=== PATIENT | female | born 1965 | race Caucasian/White ===

== ENCOUNTER 2017-02-11 16:17 | Emergency (ER) | payer OTHER ==
[~2017-02-11] VITALS: Ht 160 cm; Wt 65.8 kg
[~2017-02-11 16:17] MED LIST: FLEXERIL10 MG PO
--- NOTE | 2017-02-11 17:53 | ED GI/GU/ABDOMINAL COMPLAINT ---
History of Present Illness General Chief Complaint: Female Urogenital Problems Stated Complaint: BLOOD IN URINE FOR 4 DAYS,CRAMPS Source: patient, old records Exam Limitations: no limitations Vital Signs & Intake/Output Vital Signs & Intake/Output Vital Signs Date Time Temp Pulse Resp B/P B/P Pulse O2 O2 Flow FiO2 Mean Ox Delivery Rate 02/11 1923 98.4 77 18 138/84 97 Room Air 02/11 183 Room Air Room Air 02/11 1717 98.5 74 16 147/94 98 Room Air Allergies Coded Allergies: Tetanus Vaccines and Toxoid (PER PT CANT REMEMBER REACTION 02/11/17) tetanus and diphtheria toxoids (UNKNOWN REACTION PER PT 02/11/17) Uncoded Allergies: STONE FRUITS (GI UPSET 02/11/17) Reconcile Medications No Known Home Medications Triage Note: RECEIVED 51 YO FEMALE C/O BLOOD IN URINE, STARTED MONDAY. LOWER ABDOMINAL CRAMPING STARTED YESTERDAY, WORSE TODAY. NO DYSURIA. Triage Nurses Notes Reviewed? yes LMP (ages 10-50): hysterectomy ? N Is pt currently ? No Onset: Abrupt Duration: day(s): (1), week(s): (1), constant, waxing and waning Timing: recent history Quality/Severity: aching, cramping Severity Numbers: 5 Location: left flank, left lower quadrant Radiation: no radiation Activities at Onset: none Prior Abdominal Problems: none No Modifying Factors: none Associated Symptoms: DENIES HPI: 51-year-old female presents to the ER complaining of one-week history of hematuria associated with left flank and suprapubic abdominal pain since today. No history of similar symptoms in the past she has not sought care for her hematuria until today. No fever no chills no nausea no vomiting. She is not taken anything for her symptoms. Her only abdominal surgery significant for a hysterectomy. No chest pain back pain. She denies any vaginal bleeding or discharge. No modifying factors or associated symptoms otherwise no recent trauma fall no low back pain. No dysuria urgency frequency Past History Travel History Traveled to [place] past 21 day No Medical History Any Pertinent Medical History? none Neurological: NONE EENT: NONE Cardiovascular: NONE Respiratory: NONE Gastrointestinal: NONE Hepatic: NONE Renal: NONE Musculoskeletal: NONE Psychiatric: NONE Blood Disorders: NONE Cancer(s): NONE Surgical History Surgical History: none Psychosocial History What is your primary language Zimbabwean Tobacco Use: Never used Family History Hx Contributory? No Review of Systems Review of Systems Constitutional: Reports: see HPI. All Other Systems: Reviewed and Negative Comments Review of systems: See HPI, All other systems negative. Constitutional, no chills no fever, no malaise HEENT: No visual changes no sore throat no congestion, Cardiovascular: No chest pain , no palpitation Skin: no rashes, no change in skin Respiratory: No dyspnea no cough no sputum GI: No nausea no vomiting, no diarrhea, : No dysuria Muscle skeletal: No joint pain, no back pain, no neck pain, Neurologic: No numbness , no headache Psych: No stress Heme/endocrine: No bruising no bleeding Immunology: No lymphadenopathy Physical Exam Physical Exam General Appearance: well developed/nourished, no apparent distress, alert, awake Gastrointestinal: normal bowel sounds, soft, non-tender Comments: Well-developed well-nourished person in no acute distress HEENT: Normal EENT exam; PERRL, EOMI, HEAD is atraumatic. moist mucous membranes. Neck: Supple, no lymphadenopathy, normal range of motion Back: Nontender, no CVA tenderness. Full range of motion Cardiovascular: Regular rate and rhythms no murmurs Respiratory: No respiratory distress. Patient speaking in full complete sentences. Breath sounds clear to auscultation bilaterally: NO W/R/R Abdomen: Soft, nontender nondistended, no appreciable organomegaly. Normal bowel sounds. No rebound/guarding, No appreciable enlargement of the abdominal aorta, No ascites. Extremity: No edema, full range of motion of extremities, Neuro: Alert oriented x3, motor sensory normal, . There were no obvious focal neurologic abnormalities. Skin: No appreciable rash on exposed skin, skin is warm and dry. Psych: Mood and affect is normal, memory and judgment is normal. Core Measures ACS in differential dx? No Severe Sepsis Present: No Septic Shock Present: No Progress Differential Diagnosis: AAA, appendicitis, biliary colic, bowel obstruction, colon cancer, gastritis, hepatitis, hernia, inflamm bowel dis, kidney stone, ovarian cyst, PID/cervicitis, perforated viscous, SBO, UTI/pyelo, MALIGNANCY Plan of Care: Orders Procedure Date/time Status COMPREHENSIVE METABOLIC PANEL 02/11 1817 Complete CBC WITHOUT DIFFERENTIAL 02/11 1817 Complete URINE 02/11 162 Complete URINALYSIS 02/11 162 Complete Laboratory Tests 02/11/171826: Anion Gap 10, Estimated GFR > 60, BUN/Creatinine Ratio 15.7, Glucose 104 H, Calcium 9.3, Total Bilirubin 0.5, AST 25, ALT 37, Alkaline Phosphatase 58, Total Protein 7.4, Albumin 4.6, Globulin 2.8, Albumin/Globulin Ratio 1.6, CBC w Diff NO MAN DIFF REQ, RBC 4.53, MCV 88.3, MCH 29.9, RDW 13.3, MPV 7.4, Gran % 65.4, Lymphocytes % 27.7, Monocytes % 6.0, Eosinophils % 0.5, Basophils % 0.4, Absolute Granulocytes 4.3, Absolute Lymphocytes 1.8, Absolute Monocytes 0.4, Absolute Eosinophils 0, Absolute Basophils 0, PUBS MCHC 33.9 02/11/17 1730: Urinalysis LIGHT H, Urine Color YEL, Urine Clarity HAZY H, Urine pH 6.5, Ur Specific [place] 1.010, Urine Protein TRACE H, Urine Ketones NEG, Urine Nitrite NEG, Urine Bilirubin NEG, Urine Urobilinogen 0.2, Ur Leukocyte Esterase NEG, Ur Microscopic SEDIMENT EXAMINED, Urine RBC 15-25 H, Urine WBC RARE, Ur Epithelial Cells FEW, Urine Bacteria FEW H, Urine Mucus RARE, Urine Hemoglobin LARGE H, Urine Glucose NEG, Urine Test NEGATIVE Labs ordered patient is declining a fever pain when offered CAT scan ordered Repeat evaluation patient is again declining anything when offered discussed with her relief of her lab results pending CAT scan I discussed with the patient at length all of their results. I had an extensive conversation regarding need for close follow up with their primary care physician this week as well as return precautions. I answered all of their questions, they feel comfortable with the plan and follow-up care. (JANNY LLOYD,WILL) Diagnostic Imaging: Viewed by Me: CT Scan. Discussed w/RAD: CT Scan. Radiology Impression: PATIENT: SILAS ALLEN PRESENT AGE: 51 PATIENT ACCOUNT NO: [id number] : 67 LOCATION: [facility] ORDERING PHYSICIAN: WILL LLOYD SERVICE DATE: 02/11/17-1823 EXAM TYPE: CAT - CT ABD & PELVIS W/O IV CONTRAS EXAMINATION: CT ABDOMEN AND PELVIS WITHOUT CONTRAST CLINICAL INFORMATION: Hematuria. Suprapubic abdominal pain. COMPARISON: None TECHNIQUE: Multidetector volumetric imaging was performed from the superior aspect of the liver through the pubic symphysis. Sagittal and coronal reformatted images were obtained on the technologist's workstation. DLP: 267.47 mGy-cm FINDINGS: LUNG BASES: The visualized lung bases are unremarkable. LIVER, GALLBLADDER, AND BILIARY TREE: The liver is normal in size, shape, and attenuation. No focal hepatic lesion or biliary ductal dilatation is present. The gallbladder is unremarkable with no evidence of radiopaque gallstones, gallbladder wall thickening, or obvious pericholecystic inflammatory changes. PANCREAS: Unremarkable. SPLEEN: Unremarkable. A 1.5 cm splenule is noted at the inferior aspect of the spleen. ADRENAL GLANDS: Unremarkable. KIDNEYS AND URETERS : The kidneys are normal in size, shape and attenuation. 20.3 cm calculi are noted in the left renal pelvis. No additional radiopaque urinary tract calculi are seen. No hydroureteronephrosis or perinephric stranding. BLADDER: The bladder is unremarkable without evidence of radiopaque stones, wall thickening or soft tissue mass. GASTROINTESTINAL TRACT: The small and large bowel are unremarkable. Presume appendix is normal. No inflammatory changes noted in the pericecal region. The stomach is partially distended and unremarkable. PERITONEAL CAVITY, OMENTUM AND MESENTERY: There is no evidence of free intraperitoneal air or fluid. No inflammatory changes or nodularity is seen in the omentum and mesentery. ABDOMINAL WALL: No significant hernia is appreciated. LYMPH NODES: There is no evidence of pathologically enlarged lymph nodes. VASCULAR: Unremarkable. PELVIC VISCERA: The uterus is not seen, likely surgically absent. There is a 1.2 cm hypodense lesion in the left ovary most probably representing a cyst. Normal right ovary. No large adnexal mass is seen. Multiple calcified phleboliths are noted in the left pelvis. OSSEOUS STRUCTURES: No acute or suspicious osseous abnormality. A few small sclerotic densities in the right acetabulum and right femoral head most likely represent bone islands. IMPRESSION: 1. Two nonobstructing calculi in the left renal pelvis. No additional radiopaque urinary tract calculi. No hydroureteronephrosis. 2. A 1.2 cm hypodense lesion in the left ovary most probably represents a cyst. No large ovarian or adnexal cyst. As clinically deemed necessary pelvic ultrasound correlation may be considered. DICTATED BY: JADA HANNON MD DATE/TIME DICTATED:1842 MORTAR MIXER OPERATOR:HALIMA DATE/TIME TRANSCRIBED:02/11/171842 CONFIDENTIAL, DO NOT COPY WITHOUT APPROPRIATE AUTHORIZATION. <Electronically signed in Other Vendor System> SIGNED BY: JADA HANNON MD 02/11/171900 Initial ED EKG: none Departure Departure Time of Disposition: 1912 Disposition: HOME OR SELF CARE Condition: Stable Clinical Impression Primary Impression: Kidney stone Secondary Impressions: Ovarian cyst Referrals: QASIM PRICE,KOBE (PCP/Family) CYNDI SAENZ MD Additional Instructions: Follow-up with your primary care physician mainframe systems administrator as well as urologist Dr. saenz. Interchange Tylenol and Motrin every 4-6 hours. Return immediately if he had persistent pain despite medication you develop fever chills or any other concerns. Departure Forms: Customer Survey General Discharge Information Prescriptions: Current Visit Scripts No Known Home Medications
[2017-02-11 18:34] LABS: ABSOLUTE BASOPHIL COUNT 0 /CUMM (0.0-0.2); ABSOLUTE EOSINOPHIL COUNT 0 /CUMM (0.0-0.7); ABSOLUTE GRANULOCYTE CT 4.3 /CUMM (1.4-6.5); ABSOLUTE LYMPH COUNT 1.8 /CUMM (1.2-3.4); ABSOLUTE MONOCYTE COUNT 0.4 /CUMM (0.10-0.60); BASOPHIL % 0.4 % (0.0-2.0); EOSINOPHIL % 0.5 % (0-5); GRANULOCYTE % 65.4 % (42.2-75.2); MEAN CORPUSCULAR HGB 29.9 PG (27.0-31.0); MEAN CORPUSCULAR HGB CONC 33.9 G/DL (33.0-37.0); MEAN CORPUSCULAR VOLUME 88.3 FL (81.0-99.0); MEAN PLATELET VOLUME 7.4 FL (7.4-10.4); PLATELET COUNT 319 /CUMM (130-400); RBC DISTRIBUTION WIDTH 13.3 % (11.5-14.5); RED BLOOD CELL CT 4.53 /CUMM (4.20-5.40); WHITE BLOOD CELL COUNT 6.5 /CUMM (4.8-10.8)
--- NOTE | 2017-02-11 19:01 | CT SCAN REPORT ---
EXAMINATION: CT ABDOMEN AND PELVIS WITHOUT CONTRAST CLINICAL INFORMATION: Hematuria. Suprapubic abdominal pain. COMPARISON: None TECHNIQUE: Multidetector volumetric imaging was performed from the superior aspect of the liver through the pubic symphysis. Sagittal and coronal reformatted images were obtained on the technologist's workstation. DLP: 267.47 mGy-cm FINDINGS: LUNG BASES: The visualized lung bases are unremarkable. LIVER, GALLBLADDER, AND BILIARY TREE: The liver is normal in size, shape, and attenuation. No focal hepatic lesion or biliary ductal dilatation is present. The gallbladder is unremarkable with no evidence of radiopaque gallstones, gallbladder wall thickening, or obvious pericholecystic inflammatory changes. PANCREAS: Unremarkable. SPLEEN: Unremarkable. A 1.5 cm splenule is noted at the inferior aspect of the spleen. ADRENAL GLANDS: Unremarkable. KIDNEYS AND URETERS: The kidneys are normal in size, shape and attenuation. 20.3 cm calculi are noted in the left renal pelvis. No additional radiopaque urinary tract calculi are seen. No hydroureteronephrosis or perinephric stranding. BLADDER: The bladder is unremarkable without evidence of radiopaque stones, wall thickening or soft tissue mass. GASTROINTESTINAL TRACT: The small and large bowel are unremarkable. Presume appendix is normal. No inflammatory changes noted in the pericecal region. The stomach is partially distended and unremarkable. PERITONEAL CAVITY, OMENTUM AND MESENTERY: There is no evidence of free intraperitoneal air or fluid. No inflammatory changes or nodularity is seen in the omentum and mesentery. ABDOMINAL WALL: No significant hernia is appreciated. LYMPH NODES: There is no evidence of pathologically enlarged lymph nodes. VASCULAR: Unremarkable. PELVIC VISCERA: The uterus is not seen, likely surgically absent. There is a 1.2 cm hypodense lesion in the left ovary most probably representing a cyst. Normal right ovary. No large adnexal mass is seen. Multiple calcified phleboliths are noted in the left pelvis. OSSEOUS STRUCTURES: No acute or suspicious osseous abnormality. A few small sclerotic densities in the right acetabulum and right femoral head most likely represent bone islands. IMPRESSION: 1. Two nonobstructing calculi in the left renal pelvis. No additional radiopaque urinary tract calculi. No hydroureteronephrosis. 2. A 1.2 cm hypodense lesion in the left ovary most probably represents a cyst. No large ovarian or adnexal cyst. As clinically deemed necessary pelvic ultrasound correlation may be considered.
[2017-02-11 19:23] VITALS: BP 138/84
== END 2017-02-11 19:30 ==
LOC: ERH 16:17
PROVIDERS: Physician Assistant Medical
DX: N20.0 Calculus of kidney (principal); N83.202 Unspecified ovarian cyst, left side
CPT/HCPCS: 74176; 81001; 81025

== ENCOUNTER → 2017-03-21 | Day surgery (SDC) | payer OTHER ==
[~2017-03-21] VITALS: Ht 160 cm; Wt 65.8 kg
--- NOTE | 2017-03-21 18:37 | Operative Report ---
Operative/Inv Procedure Report Surgery Date: 03/21/17 Name of Procedure: left ureter eswl. cystoscopy. fluoroscopy Pre-Operative Diagnosis: left ureter stone with colic: hematuria Post-Operative Diagnosis: Same Estimated Blood Loss: scant Surgeon/Imaging Manager: CYNDI SAENZ MD Anesthesia: moderate sedation Specimens: None Complications: None Operative/Procedure Note Note: The patient was taken to the operating room and placed on the ESWL table in supine position. Time out was performed, with the patient awake, to confirm identity, procedure, laterality, and other pertinent marie-operative information. After adequate anesthesia, the patient was positioned so that the left flank was placed over the ESWL table cut-out, and overlying the dome of the shockwave generator. C-arm fluroscopy, as well as renal US was used to locate the stone, and evaluate the left kidney. The stone was visible on fluroloscopy at the distal-left ureter. Renal US confirmed mild hydronephrosis, with no additional stone seen in the left kidney. The left ureter stone was approximate 6 mm in size, and faintly visible with fluoroscopy. Using fluoroscopy, the position of the ureter stone was optimized for ESWL, using AP, and oblique views of the stone. Subsequently, E.S.W.L. was initiated at low power levels x 200 shocks. After noting the patient's tolerance to the shockwaves, the shock wave power level was quickly maximized. At the end of the procedure, the composition of the stone had changed significantly indicating the pulverization of the ureter stone. A total of 3000 shockwaves were delivered to the stone in order to achieve adequate lithotrypsy. The patient was then frog legged, draped and prepped in the usual surgical fashion. A 22 Nigerian cystoscope sheath with a 30 angle lens was inserted into the urethra and advanced into the bladder without difficulty. The bladder was noted to have the findings as discussed above. The bladder was then hydrodistended 2 with the irrigation fluid at 40 cm above the symphysis pubis. No evidence of tumor, increased petechiae, nor Hunner's ulceration was noted. Both ureteral orifices had clear reflux in their orthotopic position. No terminal bleed with drainage. Bladder capacity was normal. The bladder was then drained and the cystoscope was removed under direct visualization. The patient tolerated the procedures well, was awakened, and taken to recovery in satisfactory condition via stretcher. The pt will eventually be dischared to home with pain meds, diet orders, and intructions to catch fragments with straining the urine. The patient is to have follow-up renal ultrasound and KUB (after the left renal stone is treated as well). Findings: 6 mm stone at the left UPJ. Discharge Disposition: Same Day Admissions CC: CYNDI SAENZ MD
== END ==
LOC: STS 03:10
DX: N13.2 Hydronephrosis with renal and ureteral calculous obstruction (principal); R31.9 Hematuria, unspecified; I73.00 Raynaud's syndrome without gangrene
CPT/HCPCS: J2250

== ENCOUNTER → 2017-04-13 | Day surgery (SDC) | payer OTHER ==
[~2017-04-13] VITALS: Ht 160 cm; Wt 63.5 kg
--- NOTE | 2017-04-13 16:45 | Operative Report ---
Operative/Inv Procedure Report Surgery Date: 04/13/17 Name of Procedure: cysto: left ureteroscopy laser lithotrypsy. retrograde pyelogram left. fluorosocopy Pre-Operative Diagnosis: left ureter stones Post-Operative Diagnosis: same:steinstrauss Estimated Blood Loss: less than 50ml Surgeon/Urban Redevelopment Specialist: CYNDI SAENZ MD Anesthesia: moderate sedation Specimens: left ureter stones. Complications: none Condition: improved: no remaining stones in left collecting system Operative/Procedure Note Note: Patient was taken to the operating room placed on the OR table in supine position. Timeout was performed, with the patient awake, in order to confirm the patient's correct identity, laterality, antibiotics, and other pertinent perioperative information. After adequate anesthesia and antibiotics, the patient was then placed lithotomy stirrups, draped and prepped in the usual surgical fashion. A 22 [place]an cystoscope sheath with 30 angle lens was inserted without difficulty. Upon entering the bladder, the bladder was noted to be free of tumor free of stone. Both orifices were in their orthotopic position. The left orifice was intubated with a 0.035 safety gluidewire, which was inserted into the left ureter and renal pelvic, with placement confimed by fluoroscopy. An open-ended ureteral access stent was inserted over the Glidewire and retrograde was performed. The filling defects, c/w stones in the mid ureter, was noted. Mild left hydronephrosis was also noted. A ureter access sheath was gently inserted into the left ureter over the gluidewire, and advanced with fluoro. visualization. Using the access scheath, a flexible ureteroscope was advanced into the left ureter. The two large 4mm mid mid- ureter stones were visualized. Under direct visualization, the 400 g holmium YAG laser fiber was inserted through the ureteroscope. With the laser fiber in direct contact with the stone, yag laser was activated, and laser lithotrypsy under direct visualization was performed. The ureter stone was pulvorized into multiple fragments, confirmed on fluoroscopy. The flexible ureteroscope was then guided into the left renal pelvis, and calyxes, to confirm no additional stones, nor tumor. The flexible ureteroscope was then slowly retracted, and the entire length of the ureter was visualized, in order to confim no remaining stone, nor tumor, was seen on the way out. The patient tolerated theses procedures well, and was taken to the recovery room in satisfactory condition. He is discharged home with pain medication and antibiotics. Instructions for follow imaging studies and appointment in a week's time was discussed with the patient along with written post-op instructions. Discharge Disposition: PACU CC: CYNDI SAENZ MD
--- NOTE | 2017-04-14 19:02 | RADIOLOGY REPORT ---
EXAMINATION: XR ABDOMEN CLINICAL INDICATION: Ureteroscopy left stent placement COMPARISON: April 06, 2017 and studies dating back to February 11, 2017 TECHNIQUE: 12 C-arm films taken in the operating room of the abdomen. FINDINGS: Imaging demonstrates retrograde cystoureterography with placement of left ureteral stent. Fluoroscopy time 1 minute 9 seconds
== END ==
LOC: STS 07:00
DX: N20.1 Calculus of ureter (principal); N13.30 Unspecified hydronephrosis; Z87.442 Personal history of urinary calculi; I73.00 Raynaud's syndrome without gangrene
CPT/HCPCS: 74000; J0131; J1630; J1885; J2405

== ENCOUNTER 2018-05-08 16:50 | Emergency (ER) | payer OTHER ==
[~2018-05-08] VITALS: Ht 160 cm; Wt 63.5 kg
[2018-05-08 17:49] LABS: ABSOLUTE BASOPHIL COUNT 0 /CUMM (0.0-0.2); ABSOLUTE EOSINOPHIL COUNT 0 /CUMM (0.0-0.7); ABSOLUTE GRANULOCYTE CT 2.7 /CUMM (1.4-6.5); ABSOLUTE LYMPH COUNT 1.3 /CUMM (1.2-3.4); ABSOLUTE MONOCYTE COUNT 0.6 /CUMM (0.10-0.60); BASOPHIL % 0.4 % (0.0-2.0); EOSINOPHIL % 0.2 % (0-5); HEMATOCRIT 41.5 % (37-47); MEAN CORPUSCULAR HGB 30.3 PG (27.0-31.0); MEAN CORPUSCULAR HGB CONC 34.4 G/DL (33.0-37.0); MEAN CORPUSCULAR VOLUME 88.2 FL (81.0-99.0); MEAN PLATELET VOLUME 7.7 FL (7.4-10.4); PLATELET COUNT 319 /CUMM (130-400); RBC DISTRIBUTION WIDTH 12.8 % (11.5-14.5); WHITE BLOOD CELL COUNT 4.6 /CUMM (4.8-10.8)
--- NOTE | 2018-05-08 17:50 | ED GI/GU/ABDOMINAL COMPLAINT ---
See Addendum History of Present Illness General Chief Complaint: Abdominal Pain/Flank Pain Stated Complaint: SENT BY MD FOR EVAL OF ABD PAIN Source: patient, family Exam Limitations: no limitations Vital Signs & Intake/Output Vital Signs & Intake/Output Vital Signs Date Time Temp Pulse Resp B/P B/P Pulse O2 O2 Flow FiO2 Mean Ox Delivery Rate 05/08 1749 96 05/08 1654 98.9 78 18 145/90 99 Room Air Allergies Coded Allergies: Tetanus Vaccines and Toxoid (PER PT CANT REMEMBER REACTION 02/11/17) NSAIDS (Non-Steroidal Anti-Inflamma (PATIENT DOES NOT WANT ANY 03/20/17) ciprofloxacin (From CIPRO) (ACHY MUSCLES / BONES 03/20/17) Uncoded Allergies: PITTED FRUIT (? 03/20/17) Reconcile Medications No Known Home Medications Triage Note: PT SENT BY PMD DUE TO PT COMPLAINTS OF 1 WEEK OF DIFFUSE UPPER ABD PAIN THAT WRAPS AROUND INTO HER BACK , PAIN INCREASES WITH FOOD. COMPLAINS OF NAUSEA BUT DECLINES NAUSEA MEDS AT THIS TIME Triage Nurses Notes Reviewed? yes ? N Is pt currently ? No HPI: Patient presents with a month-long history of worsening right upper quadrant pain radiating to her right shoulder. Pain is worsened with eating. Patient states the pain will go away and then she will eat something and a little while later the pain will come back. Patient states she gets nauseous but has not vomited. Patient states she has had a few episodes of loose stools. Patient has had some chills but no documented fever. The pain is crampy to sharp in nature. At its worst the pain is 8 out of 10. It radiates and is exacerbated as noted above. (Santo PRICE,Christophe Alvarez) Past History Travel History Traveled to [place] past 21 day No Medical History Any Pertinent Medical History? none Neurological: NONE EENT: NONE Cardiovascular: NONE Respiratory: NONE Gastrointestinal: NONE Hepatic: NONE Renal: NONE Musculoskeletal: NONE Psychiatric: NONE Blood Disorders: NONE Cancer(s): NONE Surgical History Surgical History: none Psychosocial History What is your primary language Mozambican Tobacco Use: Never used ETOH Use: denies use Illicit Drug Use: denies illicit drug use Family History Hx Contributory? No (Santo PRICE,Christophe Alvarez) Review of Systems Review of Systems Constitutional: Reports: no symptoms. EENTM: Reports: no symptoms. Respiratory: Reports: no symptoms. Cardiovascular: Reports: no symptoms. GI: Reports: see HPI, abdominal pain, diarrhea, nausea. Genitourinary: Reports: no symptoms. Musculoskeletal: Reports: no symptoms. Skin: Reports: no symptoms. Neurological/Psychological: Reports: no symptoms. Hematologic/Endocrine: Reports: no symptoms. Immunologic/Allergic: Reports: no symptoms. All Other Systems: Reviewed and Negative (Santo PRICE,Christophe Alvarez) Physical Exam Physical Exam General Appearance: well developed/nourished, alert, awake, moderate distress Head: atraumatic, normal appearance Eyes: Bilateral: PERRL, EOMI. Ears, Nose, Throat, Mouth: hearing grossly normal, moist mucous membrane Neck: normal inspection, supple, full range of motion Respiratory: normal breath sounds, chest non-tender, no respiratory distress, lungs clear Cardiovascular: regular rate/rhythm, normal peripheral pulses Gastrointestinal: normal bowel sounds, soft, no organomegaly, tenderness (ruq) Back: normal inspection, normal range of motion, no cva tenderness Extremities: normal range of motion Neurologic/Psych: no motor/sensory deficits, awake, alert, oriented x 3, normal gait, abnormal cerebellar tests Skin: intact, normal color, warm/dry Core Measures ACS in differential dx? No Sepsis Present: No Sepsis Focused Exam Completed? No (Santo PRICE,Christophe Alvarez) Progress Differential Diagnosis: biliary colic, cholecystitis, diverticulitis, gastritis, hepatitis, ischemic bowel, inflamm bowel dis, SBO Plan of Care: Orders Procedure Date/time Status LACTIC ACID 05/08 1956 Active URINALYSIS 05/08 1656 Active LIPASE 05/08 1656 Complete LACTIC ACID 05/08 1656 Complete HEPATIC FUNCTION PANEL 05/08 1656 Complete CBC WITHOUT DIFFERENTIAL 05/08 1656 Complete BASIC METABOLIC PANEL 05/08 165 Complete Laboratory Tests 05/08/18 1738: Anion Gap 9, Estimated GFR > 60, BUN/Creatinine Ratio 7.5, Glucose 103 H, Lactic Acid 1.2, Calcium 9.9, Total Bilirubin 0.3, Direct Bilirubin 0.1, AST 24, ALT 31, Alkaline Phosphatase 53, Total Protein 7.4, Albumin 4.4, Lipase 50, CBC w Diff NO MAN DIFF REQ, RBC 4.70, MCV 88.2, MCH 30.3, MCHC 34.4, RDW 12.8, MPV 7.7, Gran % 58.0, Lymphocytes % 27.7, Monocytes % 13.7 H, Eosinophils % 0.2, Basophils % 0.4, Absolute Granulocytes 2.7, Absolute Lymphocytes 1.3, Absolute Monocytes 0.6, Absolute Eosinophils 0, Absolute Basophils 0 Diagnostic Imaging: Viewed by Me: Ultrasound. Discussed w/RAD: Ultrasound. Radiology Impression: PATIENT: SILAS ALLEN PRESENT AGE: 52 PATIENT ACCOUNT NO: [id number] : 67 LOCATION: [facility] ORDERING PHYSICIAN: Nuris LLOYD SERVICE DATE: 05/08/18 EXAM TYPE: US - US -LIMITED ABDOMEN EXAMINATION: US ABDOMEN LIMITED CLINICAL INFORMATION: Right upper quadrant pain. Mid abdominal pain.. COMPARISON: CT scan abdomen pelvis TECHNIQUE: Real-time imaging of the right upper quadrant abdominal viscera. Color Doppler exam used. FINDINGS: PANCREAS: Normal. LIVER: Normal. The liver demonstrates normal size, contour and echogenicity. No focal lesion or intrahepatic biliary duct dilatation. GALLBLADDER: Normal. The gallbladder is physiologically distended without evidence of stones, sludge, polyps, wall thickening or pericholecystic fluid. Positive ultrasound Leija's sign. COMMON BILE DUCT: Normal in caliber measuring 0.4 cm in diameter. RIGHT KIDNEY: Normal. No hydronephrosis. No renal calculi or focal parenchymal lesions. The kidney measures 9.6 cm in maximum dimension. FREE FLUID: None. IMPRESSION: Normal ultrasound of the right upper quadrant. Patient does complain of pain with transducer over the gallbladder. There is no acute change of the gallbladder. No gallstone or gallbladder wall thickening or pericholecystic fluid. DICTATED BY: Javid Martinez MD DATE/TIME DICTATED:05/08/181827 FORENSICS ANALYST:HAILMA DATE/TIME TRANSCRIBED:05/08/181827 CONFIDENTIAL, DO NOT COPY WITHOUT APPROPRIATE AUTHORIZATION. <Electronically signed in Other Vendor System> SIGNED BY: Javid Martinez MD 05/08/181832 Initial ED EKG: none Hand-Off Endorsed To: Bobby Bourne DO Endorsed Time: 1899 Pending: CT (Santo PRICE,Christophe Alvarez) Comments: 05/08/18 9:17 Pt presents with sever abdominal pain after eating that has been going on for 1 week. She states after eating she has sever gas and bloating. Ultrasound and Cat Scan were negative. (Bobby Bourne DO) Departure Departure Disposition: STILL A PATIENT Condition: Stable Clinical Impression Primary Impression: Upper abdominal pain, unspecified (Santo PRICE,Christophe Alvarez) Departure Referrals: Whit Vieyra MD (PCP/Family) Yahir Bledsoe MD Departure Forms: Customer Survey General Discharge Information Prescriptions: Current Visit Scripts No Known Home Medications Comments 05/08/18 CT scan of the abdomen and pelvis and right upper quadrant ultrasound are unremarkable. Labs are essentially unremarkable; she gets postprandial pain for a week. She said that she's been taking magnesium and also using Excedrin as needed for migraines. She also intermittently takes Motrin. Her abdomen has mild epigastric tenderness. Her labs are unremarkable. I suspect she may have gastritis or peptic ulcer disease. (Bobby Bourne DO)
--- NOTE | 2018-05-08 18:33 | ULTRASOUND REPORT ---
EXAMINATION: US ABDOMEN LIMITED CLINICAL INFORMATION: Right upper quadrant pain. Mid abdominal pain.. COMPARISON: CT scan abdomen pelvis 02/11/2017 TECHNIQUE: Real-time imaging of the right upper quadrant abdominal viscera. Color Doppler exam used. FINDINGS: PANCREAS: Normal. LIVER: Normal. The liver demonstrates normal size, contour and echogenicity. No focal lesion or intrahepatic biliary duct dilatation. GALLBLADDER: Normal. The gallbladder is physiologically distended without evidence of stones, sludge, polyps, wall thickening or pericholecystic fluid. Positive ultrasound Leija's sign. COMMON BILE DUCT: Normal in caliber measuring 0.4 cm in diameter. RIGHT KIDNEY: Normal. No hydronephrosis. No renal calculi or focal parenchymal lesions. The kidney measures 9.6 cm in maximum dimension. FREE FLUID: None. IMPRESSION: Normal ultrasound of the right upper quadrant. Patient does complain of pain with transducer over the gallbladder. There is no acute change of the gallbladder. No gallstone or gallbladder wall thickening or pericholecystic fluid.
--- NOTE | 2018-05-08 20:22 | CT SCAN REPORT ---
EXAMINATION: CT ABDOMEN AND PELVIS WITH CONTRAST CLINICAL INFORMATION: Right upper quadrant pain. COMPARISON: Same day ultrasound. TECHNIQUE: Contiguous axial thin section helical images of the abdomen and pelvis were performed following the administration of 95 mL of intravenous Optiray 320. The data set was reformatted in the coronal and sagittal planes and reviewed on an independent workstation. DLP: 277 mGy-cm. FINDINGS: The visualized lung bases are clear. The visualized portions of the heart are unremarkable. The liver is of normal size and attenuation without focal lesions nor intrahepatic biliary ductal dilation. A normal gallbladder is identified. There is no wall thickening or discernible pericholecystic fluid. The spleen, pancreas, adrenal glands are unremarkable. Both kidneys are of normal size and attenuation without hydronephrosis or nephrolithiasis. Following the administration of IV contrast, prompt symmetric nephrograms are displayed. There is no abdominal free fluid. There is neither mesenteric nor retroperitoneal lymphadenopathy. Normal unopacified loops of small and large bowel are identified. There is a small amount of pelvic free fluid. The urinary bladder is unremarkable. There is neither pelvic nor inguinal lymphadenopathy. Bone windows: Neither sclerotic nor lytic bone lesions are identified. IMPRESSION: No evidence for acute abdominal or pelvic inflammatory or infectious processes.
[2018-05-08] MEDS ORDERED: NEXIUM40 M1 PO (22:03)
[2018-05-08] MEDS ORDERED: DICYCLOMINE HCL10 M1 PO (22:03)
[2018-05-08 22:09] VITALS: BP 122/76
== END 2018-05-08 22:16 ==
LOC: ERH 16:50
PROVIDERS: Physician Assistant
DX: R10.11 Right upper quadrant pain (principal)
CPT/HCPCS: 74177; 93005; 93010

== ENCOUNTER 2018-06-07 19:34 | Emergency (ER) | payer OTHER ==
[~2018-06-07] VITALS: Ht 160 cm; Wt 61.2 kg
[~2018-06-07 19:34] MED LIST changes: +DICYCLOMINE HCL10 M1 PO; +NEXIUM40 M1 PO
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
[2018-06-07 22:42] VITALS: BP 140/83
[2018-06-07] MEDS ORDERED: CYCLOBENZAPRINE5 M2 PO (22:43)
[2018-06-07] MEDS ORDERED: VITAMIN B COMP1 EACH PO (22:53)
[2018-06-07] MEDS ORDERED: VITAMIN C500 M6 PO (22:53)
== END 2018-06-07 23:01 ==
LOC: ERH 19:34
DX: S13.9XXA Sprain of joints and ligaments of unspecified parts of neck, initial encounter (principal); V49.40XA Driver injured in collision with unspecified motor vehicles in traffic accident, initial encounter; Y92.410 Unspecified street and highway as the place of occurrence of the external cause
CPT/HCPCS: 71046